=== PATIENT | female | born 1995 | race Caucasian/White ===

== ENCOUNTER → 2016-08-08 | Day surgery (SDC) | payer OTHER ==
[~2016-08-08] MED LIST: HYDROmorphone 2 MG/ML VIAL IV PRN; IV RINGERS,LACTATED 1000ML 1,000 ML IV SCH; LIDOCAINE 1% 1 ML SYRINGE. ID PRN; METO5TAB55 PO; MIDAZOLAM HCL/PF 2 MG/2 ML VIAL. IV PRN; MORPHINE SULFATE 2 MG/ML DISP.SYRIN. IV PRN; OMEP40CA5 PO; ONDANSETRON PF 4 MG/2 ML VIAL. IV PRN; PROCHLORPERAZINE 10 MG/2 ML VIAL. IV PRN; PROPOFOL 40 ML IV ONE; fentaNYL PF VIAL 100 MCG/2 ML VIAL IV PRN
[2016-08-08 09:55] LABS: NEG OBC UR NEG; POS OBC UR POS
[2016-08-08 10:45] VITALS: BP 99/54
--- NOTE | 2016-08-12 15:28 | PATHOLOGY ---
PATHOLOGY REPORT * * * * * * * * FINAL DIAGNOSIS: A. Small bowel biopsy: - No significant pathologic abnormalities. B. Gastric biopsy, antrum: - Chronic gastritis, mild. C. Esophageal biopsy, distal esophagus: - Segment of esophagogastric mucosa showing chronic inflammation. D. Esophageal biopsy, middle esophagus: - Segments of mildly hyperplastic squamous esophageal mucosa consistent with reflux esophagitis. COMMENT: Sections of the small bowel biopsy reveal segments of duodenal mucosa. Where best oriented, the mucosal villi appear normal. There are no sprue-like changes or significant inflammatory changes. Sections of the gastric biopsy reveal segments of gastric antral and antral/body transition mucosa showing congestion and mild chronic inflammation. An immunoperoxidase stain for Helicobacter is obtained. There are no Helicobacter organisms identified. Sections of the distal esophageal biopsy reveal a segment of esophagogastric mucosa showing mild to moderate chronic inflammation. There is no evidence of Villarreal's change, dysplasia, or malignancy. Sections of the middle esophagus biopsy reveal segments of tangentially oriented, mildly hyperplastic squamous esophageal mucosa. The findings are consistent with reflux. There is no evidence of Villarreal's change, dysplasia, or malignancy. (JPM:; d/t: 08/12/16) Special Stain Performed: Immunoperoxidase stain for Helicobacter (B1) REPORT ELECTRONICALLY SIGNED BY: Jon Max M.D. DATE/TIME: 08/12/2016 15:28 * * * * * * * * GROSS PATHOLOGY: A. Received in formalin labeled "[facility], small bowel biopsy," are 3 segments of fischer soft tissue measuring 0.5 x 0.5 x 0.2 cm in aggregate dimensions and ranging from 0.3 to 0.5 cm in maximum dimension. The specimen is submitted entirely in cassette A1. B. Received in formalin labeled "[facility], gastric antrum biopsy," are 2 segments of fischer soft tissue measuring 0.7 x 0.3 x 0.2 cm in aggregate dimensions and ranging from 0.3 to 0.6 cm in maximum dimension. The specimen is submitted entirely in cassette B1. C. Received in formalin labeled "[facility], distal esophagus biopsy," are 2 segments of fischer soft tissue measuring 0.4 x 0.3 x 0.2 cm in aggregate dimensions and ranging from 0.1 to 0.4 cm in maximum dimension. The specimen is submitted entirely in cassette C1. D. Received in formalin labeled "[facility]equ[facility] Gilman, mid esophagus biopsy," are 2 segments of fischer soft tissue measuring 0.4 x 0.2 x 0.2 cm in aggregate dimensions and ranging from 0.2 to 0.4 cm in maximum dimension. The specimen is submitted entirely in cassette D1. (KAH; 08/09/2016) INITIAL CPT CODE(S): A; 47149 B; 03125, 21007 C; 39711 D; 19736 Professional services performed [place] [facility] [place] [address] Technical services performed by [facility] at [address] [place] [address], [facility] [address] [address]. SPECIMEN(S) RECEIVED: A.Small bowel biopsy B.Gastric antrum biopsy C.Distal esophagus biopsy D.Mid esophagus biopsy CLINICAL HISTORY: GERD PATIENT: DEQUAN GILMAN /AGE: 911/27/1995 (Age: 20) PATIENT #: [id number] ALT CASE #: SPECIMEN COLLECTION DATE: 08/08/2016 SPECIMEN RECEIVED DATE: 08/09/2016 [facility] - [address] [place] [address] - PHONE: [phone] * * * END OF REPORT * * *
== END | disposition home or self-care (01) ==
LOC: ENDOS 09:08
PROVIDERS: ATTEND Internal Medicine Gastroenterology
DX: K21.0 Gastro-esophageal reflux disease with esophagitis (principal); M41.9 Scoliosis, unspecified
CPT/HCPCS: 43239; 43450; 81025; J2704